=== PATIENT | male | born 1960 | race African-American/Black ===

== ENCOUNTER 2019-02-09 06:15 | Emergency (ER) | payer SELFPAY ==
[~2019-02-09] VITALS: Ht 185.4 cm; Wt 113.4 kg
--- NOTE | 2019-02-09 06:45 | NUR ---
Dr. Miranda at bedside for MSE.
--- NOTE | 2019-02-09 06:54 | NUR ---
Patient discharged to home in stable conditon. Written and verbal after care instructions given. Patient verbalizes understanding of instructions. Pt ambulated out of ER with steady gait, no acute signs of distress, VSS, all belongings taken.
[2019-02-09 06:56] VITALS: BP 141/73
== END 2019-02-09 06:56 | disposition home or self-care (01) ==
LOC: ER 06:20
DX: J06.9 Acute upper respiratory infection, unspecified (principal); Z88.0 Allergy status to penicillin
CPT/HCPCS: A4663